=== PATIENT | male | born 1965 | race Caucasian/White ===

== ENCOUNTER 2021-03-31 16:58 | Emergency (ER) | payer MEDICAID, OTHER ==
[~2021-03-31] VITALS: Ht 177.8 cm; Wt 79.4 kg
[2021-03-31 17:00] VITALS: BP_SYST 107; BP_DIAS 70; BP_DIAS 72
[2021-03-31] MEDS ORDERED: MORPHINE SULFATE IV STA (17:14)
[2021-03-31] MEDS ORDERED: ZOFRAN IV STA (17:14)
[2021-03-31] MEDS ORDERED: NITROSTAT SL STA (17:14)
[2021-03-31 17:30] LABS: BASOPHIL % 0.6 % (0.0-0.2); EOSINOPHIL # 0.3 10^3/uL (0.0-0.2); EOSINOPHIL % 4.1 % (0.0-5.0); LYMPHOCYTES # 1.21 10^3/uL1 (1.0-4.8); LYMPHOCYTES % 18.2 % (24.0-44.0); MEAN CORP HGB 28.6 pg (26-34); MONOCYTES # 0.7 10^3/uL (0.3-0.8); MONOCYTES % 10.8 % (5.0-12.0); NEUTROPHIL # 4.4 10^3/uL (1.8-7.7); NEUTROPHILS % 65.8 % (41.0-85.0); PLATELET COUNT 163 10^3/uL (150-400); RED CELL DISTRIBUTION WIDTH 12.9 % (11.5-14.5)
[2021-03-31] MEDS ORDERED: ASPIRIN PO PRN (17:30)
[2021-03-31 17:31] VITALS: BP 107/72
[2021-03-31] MEDS ORDERED: ASPIRIN ONE (17:35)
[2021-03-31] MEDS ORDERED: ZOFRAN ONE (17:35)
[2021-03-31] MEDS ORDERED: MORPHINE SULFATE ONE (17:36)
[2021-03-31] MEDS ORDERED: NS 1000ML 1,000 ML ONE (17:37)
--- NOTE | 2021-03-31 17:47 | PCM.EKG ---
[facility] Test Date: 2021-03-31 Test Time: 17:41:34 Pat Name: FIORELLA NANCE Department: Patient ID: [id number] Room: Gender: M Training Development Specialist: MIAH : 1965 Requested By: VICENTE BUSTILLOS Order Number: [id number] Reading MD: Vicente Bustillos Measurements Intervals [place] Rate: 70 P: 21 [place]: 160 QRS: 5 QRSD: 83 T: 85 QT: 421 QTc: 455 Interpretive Statements Sinus rhythm Left ventricular hypertrophy Anterior Q waves, possibly due to LVH No previous ECG available for comparison Electronically Signed On 04-01-2021 11:48:54 HI [employer] by Vicente Bustillos Please click the below link to view image of tracing.
--- NOTE | 2021-03-31 17:51 | DIREP ---
PROCEDURE:CHEST 1 VIEW COMPARISON:None. INDICATIONS:CP FINDINGS: LUNGS/PLEURA:No confluent pulmonary infiltrate. Linear opacity at the left costophrenic angle may represent scarring or atelectasis. Blunting of the right costophrenic angle may suggest trace right pleural fluid or scarring. No pneumothorax. VASCULATURE:Unremarkable pulmonary vasculature. CARDIAC:No cardiac silhouette abnormality or cardiomegaly. MEDIASTINUM:No visible mass or adenopathy. BONES:No fracture or visible bony lesion. OTHER:Negative. CONCLUSION: Trace right pleural fluid or scarring blunting the right costophrenic angle. Dictated by: Fanny Vogel MD on 03/31/2021 at 05:49 PM
[2021-03-31 18:20] LABS: CARBON DIOXIDE 21.7 mmol/L (20.0-32)
--- NOTE | 2021-03-31 18:54 | ER.PDOC ---
General Chief Complaint: Chest Pain-Cardiac Nature Stated Complaint: CP Time seen by MD: 18:00 Source: patient Exam Limitations: no limitations History of Present Illness Timing/Duration: 1-3 hours Severity/Quality: moderate Radiation: arms Activities at Onset: rest Prior CP/Workup: Angina, Cardiac Cath Nitro Today/Relief: No Nitro Taken Today Aspirin Today: No Aspirin Today Associated Symptoms: denies symptoms Past Medical History Medical History: cardiac problems, hypertension Surgical History: knee, other Social History Alcohol Use: none Drug Use: none Reviewed Nursing Reviewed: Vital Signs, Abn. Noted All Other Systems: Reviewed and Negative Physical Exam General Appearance: No Apparent Distress, WD/WN HEENT: PERRL/EOMI, Normal ENT Inspection, TMs Normal, Pharynx Normal Neck: Non-Tender, Full Range of Motion, Supple, Normal Inspection Respiratory: chest non-tender, lungs clear, normal breath sounds, no respiratory distress, no accessory muscle use Cardiovascular: Normal Peripheral Pulses, Regular Rate, Rhythm, No Edema, No Gallop, No JVD, No Murmur Gastrointestinal: Normal Bowel Sounds, No Organomegaly, No Pulsatile Mass, Non Tender, Soft Extremities: Normal Range of Motion, Non-Tender, Normal Inspection, No Pedal Edema, No Calf Tenderness, Normal Capillary Refill 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, No Motor/Sensory Deficits, Alert, Normal Mood/Affect, Oriented x 3 Skin: Normal Color, Warm/Dry Lymphatic: No Adenopathy Results/Orders Results/Orders Vital Signs Date Time Temp Pulse Resp B/P (MAP) Pulse Ox O2 Delivery O2 Flow Rate FiO2 03/31/21 17:31 98.4 97 18 107/72 (84) 97 Room Air 03/31/21 17:00 98.4 97 18 03/31/21 17:00 98.8 82 20 97 Administered Medications Medications (Trade) Dose Ordered Sig/Anjali Route PRN Reason Start Time Stop Time Status Last Admin Dose Admin Aspirin (Aspirin) 325 mg DAILY PRN PO CHEST PAIN 03/31/21 17:30 04/30/21 17:29 03/31/21 17:20 325 MG Morphine Sulfate (Morphine Sulfate) 4 mg STAT STAT IV 03/31/21 17:14 03/31/21 17:18 DC 03/31/21 17:20 4 MG Nitroglycerin (Nitrostat) 0.4 mg STAT STAT SL 03/31/21 17:14 03/31/21 17:18 DC 03/31/21 17:20 0.4 MG Ondansetron HCl (Zofran) 4 mg STAT STAT IV 03/31/21 17:14 03/31/21 17:18 DC 03/31/21 17:20 4 MG Laboratory Tests Test 03/31/21 17:10 White Blood Count 6.7 10^3/uL (4.5-11.0) Red Blood Count 5.66 10^6/uL (4.50-5.90) Hemoglobin 16.2 g/dL (13.9-16.3) Hematocrit 51.5 % (37.0-53.0) Mean Corpuscular Volume 91.0 fL (78-100) Mean Corpuscular Hemoglobin 28.6 pg (26-34) Mean Corpuscular Hemoglobin Concent 31.5 g/dL (33-36.5) L Red Cell Distribution Width 12.9 % (11.5-14.5) Platelet Count 163 10^3/uL (150-400) Mean Platelet Volume 11.5 fL (7.8-11.0) H Neutrophils (%) (Auto) 65.8 % (41.0-85.0) Lymphocytes (%) (Auto) 18.2 % (24.0-44.0) L Monocytes (%) (Auto) 10.8 % (5.0-12.0) Neutrophils # (Auto) 4.4 10^3/uL (1.8-7.7) Lymphocytes # (Auto) 1.21 10^3/uL1 (1.0-4.8) Monocytes # (Auto) 0.7 10^3/uL (0.3-0.8) Absolute Immature Granulocyte (auto 0.03 10^3 u/L (0-2) Absolute Eosinophils (auto) 0.3 10^3/uL (0.0-0.2) H Immature Granulocytes % 0.50 % (0.00-0.50) Eosinophils % 4.1 % (0.0-5.0) Basophils % 0.6 % (0.0-0.2) H Basophils # 0.0 10^3/uL (0.0-0.1) Prothrombin Time 11.7 SEC (9.1-11.5) H Prothrombin Time INR (Non-Therap) 1.1 Activated Partial Thromboplast Time 25.4 SEC (22.5-33.1) D-Dimer 0.24 mg/L (0.19-0.49) Sodium Level 139 mmol/L (132-145) Potassium Level 4.3 mmol/L (3.6-5.2) Chloride Level 103.0 mmol/L (96-109) Carbon Dioxide Level 21.7 mmol/L (20.0-32) Anion Gap 18.6 Blood Urea Nitrogen 26 mg/dL (7-18) H Creatinine 0.99 mg/dL (0.59-1.40) Estimated GFR () 93.9 (>/=60) Est GFR (CKD-EPI)(Non-Afr Guyanese) 77.6 (>/=60) BUN/Creatinine Ratio 26.0 Glucose Level 80 mg/dL (70-110) Calcium Level 9.0 mg/dL (8.4-10.5) Total Bilirubin 2.7 mg/dL (0.2-1.0) H Aspartate Amino Transferase (AST) 39 U/L (0-35) H Alanine Aminotransferase (ALT) 48 U/L (12-78) Alkaline Phosphatase 79 U/L (50-136) Total Creatine Kinase 71 U/L (39-308) Creatine Kinase MB 2.0 ng/mL (0.5-3.6) Troponin I High Sensitivity 18 ng/L (0-75) Pro-B-Type Natriuretic Peptide 194 pg/mL (0-125) H Total Protein 8.5 g/dL (6.4-8.2) H Albumin 4.0 g/dL (3.4-5.0) Globulin 4.5 Albumin/Globulin Ratio 0.888 Progress Progress TO [place] Patient re-examined, says CP has been going on for yrs, had CATH 3 yrs ago with non operable small lesions. Has had extensive w/u and nobody knows where his pain comes from > he is not taking anything for GERD. Only takes NTG/ASA. He will be treated for GERD, and d/c home. Low likelihood of CAD today. ER DEPART Departure Time of Disposition: 20:12 (10 minutes) Disposition: 01 HOME / SELF CARE / HOMELESS Impression: Primary Impression: Precordial pain Additional Impression: GERD (gastroesophageal reflux disease) Condition: Stable Patient Instructions: Diet for Gastroesophageal Reflux Disease, Adult Referrals: PCP,UNKNOWN (PCP) PRIMARY CARE PROVIDER Additional Instructions: F/U with PCP Avoid fatty and spicy meals Consider eval by GI Specialist Duration or Time Spent with Pa: 10 min Return to Work/School Can a patient return to work?: Yes Problem Qualifiers IZABELLA THOMPSON MD Mar 31, 2021 18:54 CHULA TRUJILLO MD Mar 31, 2021 20:12
[2021-03-31] MEDS ORDERED: TYLENOL PO STA (20:16)
[2021-03-31] MEDS ORDERED: LIDOCAINE VISCOUS ONE (20:19)
[2021-03-31] MEDS ORDERED: MYLANTA ONE (20:20)
[2021-03-31] MEDS ORDERED: PEPCID ONE (20:21)
[2021-03-31] MEDS ORDERED: TYLENOL PO ONE (20:21)
[2021-03-31] MEDS ORDERED: LIDOCAINE HCL VISCOUS MM ONE (20:30)
--- NOTE | 2021-03-31 20:30 | NUR ---
IV DC'D TIP INTACT, NO BLEEDING
[2021-03-31 20:34] VITALS: BP 124/66
[2021-03-31] MEDS ORDERED: MYLANTA PO ONE (21:00)
[2021-03-31] MEDS ORDERED: CARAFATE PO ONE (21:00)
[2021-03-31] MEDS ORDERED: PEPCID PO ONE (21:00)
== END 2021-03-31 20:34 | disposition home or self-care (01) ==
LOC: ER 16:58
DX: R07.2 Precordial pain (principal); K21.9 Gastro-esophageal reflux disease without esophagitis; I10 Essential (primary) hypertension
CPT/HCPCS: 36415; 71045; 80053; 82550; 82553; 83880; 84484; 85025; 85379; 85610; 85730; 93005; 96374; 96375; 99285; A9150; J2270; J2405; J3490; J7030

== ENCOUNTER 2021-04-01 16:52 | Emergency (ER) | payer OTHER ==
[~2021-04-01] VITALS: Ht 172.7 cm; Wt 81.6 kg
[2021-04-01 17:10] VITALS: BP 128/83
--- NOTE | 2021-04-01 17:16 | NUR ---
ARRIVAL PATIENT ARRIVED TO ED6 AMBULATORY, C/O RIGHT SHOULDER AND CHEST PAIN FOR THE PAST SEVERAL DAYS, PATIENT WAS SEEN YESTERADAY IN THIS ED AND CARDIAC WAS RULED OUT, TODAY HE COMPLAINS OF SAME CHEST PAIN, DID TAKE 2 NITRO WITH NO RELIEF, WAS TOLD TO COME BACK TO THE ED, DOCTOR NOTIFIED OF PATIENT'S ARRIVAL.
--- NOTE | 2021-04-01 17:30 | PCM.EKG ---
[facility] Test Date: 2021-04-01 Test Time: 17:25:09 Pat Name: FIORELLA NANCE Department: Patient ID: [facility]-[id number] Room: Gender: M Ct Scan Tech: che : 1965 Requested By: CHULA TRUJILLO Order Number: [id number] Reading MD: Measurements Intervals [place] Rate: 60 P: 43 [place]: 156 QRS: 54 QRSD: 87 T: 55 QT: 500 QTc: 500 Interpretive Statements Sinus rhythm Anteroseptal infarct, old Compared to ECG 03/31/2021 17:41:34 Myocardial infarct finding now present Left ventricular hypertrophy no longer present Q waves no longer present Please click the below link to view image of tracing.
--- NOTE | 2021-04-01 17:57 | ER.PDOC ---
General Chief Complaint: Chest Pain-Non Cardiac Nature Stated Complaint: CP,SHOULDER PAIN Time seen by MD: 17:30 Source: patient History of Present Illness Initial Comments 56 y/o male who comes here with chest pain for years He was here yesterday and w/u was negative Says " nobody can figure out what I have " no fever/chills no n/v pain is " severe" , stabbing, chronic for years pain radiates across entire chest and shoulders worst with activity Tried NTG with no result Wants something " strong" for pain Past Medical History Medical History: cardiac problems, high cholesterol, hypertension, other (chronic chest pain) Surgical History: cardiac cath Family History Significant Family History: no pertinent family hx Social History Smoking: non-smoker Alcohol Use: none Drug Use: none Reviewed Nursing Reviewed: Vital Signs, Abn. Noted, Nursing Assessment Constitutional: denies no symptoms reported, denies see HPI, denies chills, denies diaphoresis, denies fever, denies malaise, denies weakness, denies other EENTM: denies no symptoms reported, denies see HPI, denies eye pain, denies blurred vision, denies tearing, denies double vision, denies ear pain, denies ear discharge, denies nose pain, denies nose congestion, denies throat pain, denies throat swelling, denies mouth pain, denies mouth swelling, denies other Respiratory: denies no symptoms reported, denies see HPI, denies cough, denies orthopnea, denies shortness of breath, denies SOB with exertion, denies SOB at rest, denies stridor, denies wheezing, denies other Cardiovascular: chest pain Gastrointestinal: denies no symptoms reported, denies see HPI, denies abdomen distended, denies abdominal pain, denies blood streaked bowels, denies constipated, denies diarrhea, denies difficulty swallowing, denies nausea, denies poor appetite, denies poor fluid intake, denies rectal bleeding, denies vomiting, denies other Genitourinary: denies no symptoms reported, denies see HPI, denies burning, denies dysuria, denies discharge, denies frequency, denies flank pain, denies hematuria, denies incontinence, denies pain, denies urgency, denies other Musculoskeletal: denies no symptoms reported, denies see HPI, denies back pain, denies gout, denies joint pain, denies joint swelling, denies muscle pain, denies muscle stiffness, denies neck pain, denies other Endocrine: denies no symptoms reported, denies see HPI, denies excessive sweating, denies flushing, denies intolerance to cold, denies intolerance to heat, denies increased hunger, denies increased thrist, denies increased urine, denies unexplained weight gain, denies unexplaned weight loss, denies other Hematologic/Lymphatic: denies no symptoms reported, denies see HPI, denies anemia, denies blood clots, denies easy bleeding, denies easy bruising, denies swollen glands, denies other All Other Systems: Reviewed and Negative Physical Exam General Appearance: No Apparent Distress, Anxious HEENT: PERRL/EOMI, Normal ENT Inspection Neck: Non-Tender, Full Range of Motion Respiratory: lungs clear, normal breath sounds, no respiratory distress, no accessory muscle use, other (+ chest wall tender) Cardiovascular: Normal Peripheral Pulses, Regular Rate, Rhythm, No Edema, No Gallop, No JVD, No Murmur, Other Gastrointestinal: Normal Bowel Sounds, No Organomegaly, No Pulsatile Mass, Non Tender Neurologic/Psychiatric: layer out II-XII NML as Tested, No Motor/Sensory Deficits, Alert, Oriented x 3 Skin: Normal Color, Warm/Dry Lymphatic: No Adenopathy Results/Orders Results/Orders Orders - CHULA TRUJILLO MD Ekg-Routine (04/01/21 17:25) Vital Signs Date Time Temp Pulse Resp B/P (MAP) Pulse Ox O2 Delivery O2 Flow Rate FiO2 04/01/21 17:10 98.6 71 18 04/01/21 17:10 98.6 71 18 94 04/01/21 17:10 98.6 71 18 128/83 (98) 94 Room Air Progress Progress patient with chronic chest pain EKG normal Shows signs of drug seeking he is from [place], says he is passing through D/C home EKG/XRAY/CT/US EKG Comments: NSR@ 60 OR 156, QRS 87 St segment normal ER DEPART Departure Time of Disposition: 18:03 Disposition: 01 HOME / SELF CARE / HOMELESS Impression: Primary Impression: Tenderness of chest wall Condition: Stable Patient Instructions: Chest Wall Pain, [id number] Referrals: PCP,UNKNOWN (PCP) PRIMARY CARE PROVIDER Comments f/u with your PCP RTC if symptoms worsen Duration or Time Spent with Pa: 10 min CHULA TRUJILLO MD Apr 01, 2021 17:57
[2021-04-01 18:04] VITALS: BP 121/79
== END 2021-04-01 18:08 | disposition home or self-care (01) ==
LOC: ER 16:52
DX: R07.89 Other chest pain (principal); I10 Essential (primary) hypertension; E78.00 Pure hypercholesterolemia, unspecified
CPT/HCPCS: 93005; 99283